=== PATIENT | female | born 1975 | race Two or more races ===

== ENCOUNTER 2017-12-14 13:58 | Outpatient (CLI) | payer OTHER ==
[~2017-12-14 13:58] MED LIST: DURICEF500 MG PO; TORADOL10 MG PO
== END 2017-12-14 14:09 | disposition home or self-care (01) ==
LOC: MAMO-SONO 13:58
DX: Z12.31 Encounter for screening mammogram for malignant neoplasm of breast (principal); N60.11 Diffuse cystic mastopathy of right breast

== ENCOUNTER 2018-09-25 11:21 | Outpatient (CLI) | payer OTHER | END 2018-09-25 11:38 | disposition home or self-care (01) | LOC: MAMO-SONO 11:21 | DX: N60.11 Diffuse cystic mastopathy of right breast (principal); Z12.31 Encounter for screening mammogram for malignant neoplasm of breast ==

== ENCOUNTER 2019-12-14 11:10 | Outpatient (CLI) | payer OTHER | END 2019-12-14 13:00 | disposition home or self-care (01) | LOC: MAMO-SONO 11:10 | PROVIDERS: ATTEND Obstetrics & Gynecology | DX: Z12.31 Encounter for screening mammogram for malignant neoplasm of breast (principal); N60.11 Diffuse cystic mastopathy of right breast ==

== ENCOUNTER → 2021-03-11 | Outpatient (CLI) | payer OTHER | END | disposition home or self-care (01) | LOC: MAMO-SONO 08:29 | PROVIDERS: ATTEND Obstetrics & Gynecology | DX: N60.11 Diffuse cystic mastopathy of right breast (principal); N60.12 Diffuse cystic mastopathy of left breast; N64.89 Other specified disorders of breast; Z12.31 Encounter for screening mammogram for malignant neoplasm of breast ==

== ENCOUNTER 2023-02-02 08:01 | Outpatient (CLI) | payer OTHER | END 2023-02-02 08:08 | disposition home or self-care (01) | LOC: MAMO-SONO 08:01 | PROVIDERS: ATTEND Obstetrics & Gynecology | DX: Z12.31 Encounter for screening mammogram for malignant neoplasm of breast (principal); N60.11 Diffuse cystic mastopathy of right breast ==

== ENCOUNTER 2024-05-02 10:09 | Outpatient (CLI) | payer OTHER | END 2024-05-02 10:38 | disposition home or self-care (01) | LOC: MAMO-SONO 10:09 | PROVIDERS: ATTEND Obstetrics & Gynecology | DX: N60.11 Diffuse cystic mastopathy of right breast (principal); K76.0 Fatty (change of) liver, not elsewhere classified; E78.00 Pure hypercholesterolemia, unspecified; R80.9 Proteinuria, unspecified; N18.31 Chronic kidney disease, stage 3a; N20.0 Calculus of kidney ==

== ENCOUNTER 2024-10-21 20:03 | Emergency (ER) | payer OTHER ==
[~2024-10-21] VITALS: Ht 165.1 cm; Wt 63.5 kg
[2024-10-21] MEDS ORDERED: EZALLOR SPRINKLE5 MG (20:09)
[2024-10-21] MEDS ORDERED: COZAAR25 MG (20:09)
[2024-10-21 20:40] LABS: HEMATOCRIT 29.3 % (36.0-45.00); HEMOGLOBIN 9.5 g/dL (12.0-15.00); MEAN CELL VOLUME 79.3 fL (80.00-100.00); MEAN CORPUSCULAR HEMOGLOBIN 25.7 pg (27.00-32.0); MEAN CORPUSCULAR HGB CONC 32.4 g/dl (32.0-36.0); PLATELET COUNT 202 K/uL (150-450)
[2024-10-21 20:43] LABS: RED CELL DISTRIBUTION WIDTH 18.2 % (11.5-14.5)
== END 2024-10-21 20:59 | disposition home or self-care (01) ==
LOC: ER 20:04
PROVIDERS: Emergency Medicine
DX: N93.8 Other specified abnormal uterine and vaginal bleeding (principal); I10 Essential (primary) hypertension